=== PATIENT | female | born 1985 ===

== ENCOUNTER 2018-02-09 09:04 | Outpatient (CLI) | payer OTHER | END 2018-02-09 09:16 | disposition home or self-care (01) | LOC: LAB 09:04 | DX: Z12.11 Encounter for screening for malignant neoplasm of colon (principal); D64.89 Other specified anemias; E03.8 Other specified hypothyroidism; N95.1 Menopausal and female climacteric states; I10 Essential (primary) hypertension; C51.9 Malignant neoplasm of vulva, unspecified; N30.00 Acute cystitis without hematuria; E83.51 Hypocalcemia; R97.8 Other abnormal tumor markers; Z11.4 Encounter for screening for human immunodeficiency virus [HIV]; A63.8 Other specified predominantly sexually transmitted diseases ==